=== PATIENT | female | born 1990 | race Caucasian/White ===

== ENCOUNTER 2019-01-09 11:24 | Emergency (ER) | payer OTHER ==
[~2019-01-09] VITALS: Ht 157.5 cm; Wt 85.7 kg
--- OUTSIDE RECORDS SUMMARY | 2019-01-09 11:26 | XMS REPORT | Encounter Summary ---
Author Organization Unknown Address [address] [place] [address] Phone [phone] Reason for Visit Medical Complaint Instructions 1. Sinusitis Augmentin 875 mg-125 mg tablet fluticasone 50 mcg/actuation nasal spray,suspension sinusitis: care instructions saline nasal washes: care instructions 2. Acute bronchitis bronchitis: care instructions Bromfed DM 2 mg-30 mg-10 mg/5 mL syrup 3. Sore throat symptom rapid strep group A, throat sore throat: care instructions 4. Cough rapid flu (A+B) cough: care instructions 5. Body mass index 30+ - obesity body mass index: care instructions learning about healthy weight 6. Elevated blood pressure elevated blood pressure: care instructions dash diet: care instructions blood pressure monitoring education Discussion Note: None recorded. Plan of Care Patient Instructions Your Care Instructions Sinusitis is an infection of the lining of the sinus cavities in your head. Sinusitis often follows a cold. It causes pain and pressure in your head and face. In most cases, sinusitis gets better on its own in 1 to 2 weeks. But some mild symptoms may last for several weeks. Sometimes antibiotics are needed. Follow-up care is a stephens part of your treatment and safety. Be sure to make and go to all appointments, and call your doctor if you are having problems. It's also a good idea to know your test results and keep a list of the medicines you take. How can you care for yourself at home? Take an ppba-qip-hnujjoy pain medicine, such as acetaminophen (Tylenol), ibuprofen (Advil, Motrin), or naproxen (Aleve). Read and follow all instructions on the label. If the doctor prescribed antibiotics, take them as directed. Do not stop taking them just because you feel better. You need to take the full course of antibiotics. Be careful when taking jfwn-wcr-qxyrulz cold or flu medicines and Tylenol at the same time. Many of these medicines have acetaminophen, which is Tylenol. Read the labels to make sure that you are not taking more than the recommended dose. Too much acetaminophen (Tylenol) can be harmful. Breathe warm, moist air from a steamy shower, a hot bath, or a sink filled with hot water. Avoid cold, dry air. Using a humidifier in your home may help. Follow the directions for cleaning the machine. Use saline (saltwater) nasal washes to help keep your nasal passages open and wash out mucus and bacteria. You can buy saline nose drops at a grocery store or drugstore. Or you can make your own at home by adding 1 teaspoon of salt and 1 teaspoon of baking soda to 2 cups of distilled water. If you make your own, fill a bulb syringe with the solution, insert the tip into your nostril, and squeeze gently. Blow your nose. Put a hot, wet towel or a warm gel pack on your face 3 or 4 times a day for 5 to 10 minutes each time. Try a decongestant nasal spray like oxymetazoline (Afrin). Do not use it for more than 3 days in a row. Using it for more than 3 days can make your congestion worse. When should you call for help? Call your doctor now or seek immediate medical care if: You have new or worse swelling or redness in your face or around your eyes. You have a new or higher fever. Watch closely for changes in your health, and be sure to contact your doctor if: You have new or worse facial pain. The mucus from your nose becomes thicker (like pus) or has new blood in it. You are not getting better as expected. Reminders Provider Appointments None recorded. Lab Rapid Strep Group a, Throat 09/04/2018 [facility] Rapid Flu (A+B) 09/04/2018 [facility] Referral None recorded. Procedures None recorded. Surgeries None recorded. Imaging None recorded. Medications Name Start Date Augmentin 875 mg-125 mg tablet Take 1 tablet every 12 hours by oral route with meals for 10 days. Bromfed DM 2 mg-30 mg-10 mg/5 mL syrup Take 10 mL every 4 hours by oral route. fluticasone 50 mcg/actuation nasal spray,suspension [place] 2 sprays every day by intranasal route as directed for 14 days. Gku-Cf-Vmfsbe 0.18 mg/0.215 mg/0.25 mg-25 mcg tablet TAKE ONE (1) TABLET(S) BY MOUTH ONCE A DAY. Medications Administered None recorded. Vitals Height Weight BMI Blood Pressure 5 ft 2 in 190 lbs 34.8 kg/m2 110/80 mm[Hg] Lab Results Date Name Specimen Result Interpretation Description Value Range Status Address Rapid Flu (A+B) Influenza a negative [facility]: [address] [place] [address] Influenza B negative [facility]: [address] [place] [address] Rapid Strep Group a, Throat Result negative [facility]: [facility] Swab Location Left and Right tonsillar pillars [facility]: [address] [place] [address] Allergies Code Code System Name Reaction Severity Status Onset NKDA Problems Name Status Onset Date Source Streptococcal Sore Throat Active Encounter Acute Sinusitis Active Encounter Acute Maxillary Sinusitis Active Encounter Procedures None recorded. Vaccine List Vaccine Type influenza, injectable, quadrivalent 07/09/2018 Social History Smoking Status Never Smoker Past Encounters 09/04/2018 Sinusitis; Acute Bronchitis; Sore Throat Symptom; Cough; Body Mass Index 30+ - Obesity; Elevated Blood Pressure RAJ LeavittC: [address] [place] [address], Ph. History of Present Illness Yegrurs-Wuctl-Xpv Reported By: Patient HPI: Quality: cannot identify. Duration: constant. Context: no tick/insect bites, no recent travel, no new medications, ill contacts. Associated Symptoms: no fever/chills, no muscle aches, no rash, no lethargy, headache, cold symptoms, tired (fatigue), cough, nasal passage blockage (stuffiness), nasal discharge. Modifying Factors OTC medication Review of Systems:ROS as noted in the HPI Review of Systems Basic Reported By: Patient Physical Exam Adult Basic, Adult Female Complete Reported By: Patient Constitutional: General Appearance: obese. Level of Distress: NAD. Ambulation: ambulating normally Psychiatric: Mental Status: active and alert. Orientation: to time, to place, to person Mya-Nztd-Dgfvg-Throat: Ears: no lesions on external ear, no outer ear tenderness, EACs clear, TMs clear. Hearing: no hearing loss. Nose: no lesions on external nose, nares patent, no septal deviation, nasal passages clear, sinus tenderness, nasal discharge. Lips, Teeth, and Gums: no mouth or lip ulcers, no bleeding gums, normal dentition. Oropharynx: moist mucous membranes, no erythema, no exudates, tonsils not enlarged Lungs: Respiratory effort: no dyspnea, no tachypnea, no use of accessory muscles, no intercostal retractions. Auscultation: breath sounds normal Cardiovascular: Heart Auscultation: RRR, no murmurs
--- OUTSIDE RECORDS SUMMARY | 2019-01-09 11:26 | XMS REPORT | Continuity of Care Document ---
Author Author [facility] Interface Address Unknown Phone Unavailable Problems Problem Status Onset Date Classification Date Reported Comments Source Asthma 09/29/2018 Diagnosis 09/29/2018 [facility] Allergic rhinitis 09/29/2018 Diagnosis 09/29/2018 [facility] Tonsillitis 09/29/2018 Diagnosis 09/29/2018 [facility] Elevated blood pressure 09/04/2018 Diagnosis 09/29/2018 [facility] Body mass index 30+ - obesity 09/04/2018 Diagnosis 09/29/2018 [facility] Acute bronchitis 09/04/2018 Diagnosis 09/29/2018 [facility] Sinusitis 09/04/2018 Diagnosis 09/29/2018 [facility] Cough 09/04/2018 Diagnosis 09/29/2018 [facility] Sore throat symptom 09/04/2018 Diagnosis 09/29/2018 [facility] Exposure to Streptococcus 09/30/2016 Diagnosis 09/30/2016 [facility] Streptococcal Sore Throat Problem 09/29/2018 [facility] Acute Sinusitis Problem 09/29/2018 [facility] Acute Maxillary Sinusitis Problem 09/29/2018 [facility] Medications Medication Details Route Status Patient Instructions Ordering Provider Order Date Source Amoxicillin 875 MG / Clavulanate 125 MG Oral Tablet [Augmentin] Augmentin 875 mg-125 mg tablet Take 1 tablet every 12 hours by oral route with meals for 10 days. Active [facility] Brompheniramine Maleate 0.4 MG/ML / Dextromethorphan Hydrobromide 2 MG/ML / Pseudoephedrine Hydrochloride 6 MG/ML Oral Solution [Bromfed DM] Bromfed DM 2 mg-30 mg-10 mg/5 mL syrup Take 10 mL every 4 hours by oral route. Active [facility] Fluticasone propionate 0.05 MG/ACTUAT Metered Dose Nasal [place] fluticasone 50 mcg/actuation nasal spray,suspension USE TWO (2) SPRAY(S) INTO EACH NOSTRIL EVERY DAY DIRECTED FOR 14 DAYS. Active [facility] Tky-Sb-Dutuby 0.18 mg/0.215 mg/0.25 mg-25 mcg tablet Vfz-Fv-Hggfst 0.18 mg/0.215 mg/0.25 mg-25 mcg tablet TAKE ONE (1) TABLET(S) BY MOUTH ONCE A DAY. Active [facility] Cathy-D Cathy-D Active [facility] Albuterol 0.09 MG/ACTUAT Metered Dose Inhaler ProAir HFA 90 mcg/actuation aerosol inhaler Take 1-2 puffs q 4-6 hr prn coughing or wheezing. Active [facility] Azithromycin 250 MG Oral Tablet Zithromax Z-Wilver 250 mg tablet TAKE 2 TABLETS (500 MG) BY ORAL ROUTE ONCE DAILY FOR 1 DAY THEN 1 TABLET (250 MG) BY ORAL ROUTE ONCE DAILY FOR 4 DAYS Active [facility] Amoxicillin 500 MG Oral Capsule amoxicillin 500 mg capsule Take 1 capsule every 12 hours by oral route for 10 days. Active [facility] Ortho Tri-Cyclen LO (28) 0.18 mg/0.215 mg/0.25 mg-25 mcg tablet Ortho Tri-Cyclen LO (28) 0.18 mg/0.215 mg/0.25 mg-25 mcg tablet TAKE ONE (1) TABLET(S) BY MOUTH ONCE A DAY. Active [facility] 200 ACTUAT Albuterol 0.09 MG/ACTUAT Metered Dose Inhaler [ProAir] ProAir HFA 90 mcg/actuation aerosol inhaler INHALE TWO (2) PUFF(S) FOUR TIMES A DAY NEEDED FOR SHORTNESS OF BREATH. Active [facility] Allergies, Adverse Reactions, Alerts Substance Category Reaction Severity Reaction type Status Date Reported Comments Source Immunizations Immunization Date Given Site Status Last Updated Comments Source influenza, injectable, quadrivalent 07/09/2018 completed [facility] Results Order Name Results Value Reference Range Date Interpretation Comments Source RESULT negative 09/29/2018 [facility] Influenza A negative 09/29/2018 [facility] Influenza B negative 09/29/2018 [facility] RESULT negative 09/29/2018 [facility] SWAB LOCATION Left and Right tonsillar pillars 09/29/2018 [facility] Influenza A negative 09/04/2018 [facility] Influenza B negative 09/04/2018 [facility] RESULT negative 09/04/2018 [facility] SWAB LOCATION Left and Right tonsillar pillars 09/04/2018 [facility] RESULT negative 09/30/2016 [facility] SWAB LOCATION Left and Right tonsillar pillars 09/30/2016 [facility] Vital Signs Vital Sign Value Date Comments Source Diastolic (mm Hg) 60 09/29/2018 [facility] Height 62 09/29/2018 [facility] Systolic (mm Hg) 115 09/29/2018 [facility] Weight 190 09/29/2018 [facility] Diastolic (mm Hg) 80 09/04/2018 [facility] Height 62 09/04/2018 [facility] Systolic (mm Hg) 110 09/04/2018 [facility] Weight 190 09/04/2018 [facility] Diastolic (mm Hg) 82 09/30/2016 [facility] Height 62 09/30/2016 [facility] Systolic (mm Hg) 120 09/30/2016 [facility] Weight 180 09/30/2016 [facility] Encounters Location Location Details Encounter Type Encounter Number Reason For Visit Attending Provider ADM Date DC Date Status Source [place] - [facility] - [id number] Aly Leija, TRA[employer]EL [employer]VIEWER-C: [address] [place] [address], Ph. [id number] Aly Leija 09/30/2016 [facility] [place] - [facility] - [id number] MANUEL Leavitt-C: [address] [place] [address], Ph. [id number] Fatou Polanco 09/04/2018 [facility] [place] - [facility] - [id number] CRUZ LeavittP-C: [address] [place] [address], Ph. [id number] Fatou Orisaradha 09/04/2018 [facility] [place] - [facility] - [id number] MANUEL Leavitt-C: [address] [place] [address], Ph. [id number] Biaethan Collin 09/04/2018 [facility] [place] - [facility] - [id number] January VAISHNAVI CarvajalC: [address] [place] [address], Ph. [phone] [id number] Zoey Wei 09/29/2018 [facility] Procedures Procedure Code Date Perfomer Comments Source
--- OUTSIDE RECORDS SUMMARY | 2019-01-09 11:26 | XMS REPORT | Encounter Summary ---
Author Organization Unknown Address [address] [place] [address] Phone [phone] Reason for Visit Medical Complaint Instructions 1. [...] care for yourself at home? Take an napb-ivx-qcibmvi pain medicine, such as acetaminophen (Tylenol), ibuprofen (Advil, Motrin), or naproxen (Aleve). Read and follow all instructions on the label. If the doctor prescribed antibiotics, take them as directed. Do not stop taking them just because you feel better. You need to take the full course of antibiotics. Be careful when taking fnei-nzi-ocgunzy cold or flu medicines and Tylenol at [...] oral route. fluticasone 50 mcg/actuation nasal spray,suspension [place] 2 sprays every day by intranasal route as directed for 14 days. Bnk-Wo-Rrdtlg 0.18 mg/0.215 mg/0.25 mg-25 mcg tablet TAKE ONE (1) TABLET(S) BY MOUTH ONCE A DAY. Medications Administered None recorded. Vitals Height Weight BMI Blood Pressure 5 ft 2 in 190 lbs 34.8 kg/m2 110/80 mm[Hg] Lab Results Date Name Specimen Result Interpretation Description Value Range Status Address Rapid Flu (A+B) Influenza a negative [facility]: [address] [place] [address] Influenza B negative [facility]: [address] [place] [address] Rapid Strep Group a, Throat Result negative [facility]: [facility] Swab Location Left and Right tonsillar pillars [facility]: [address] [place] [address] Allergies Code Code System Name Reaction Severity [...] Obesity; Elevated Blood Pressure RAJ LeavittC: [address] [place] [address], Ph. History of Present Illness Oruwxfr-Ifwrx-Qze Reported By: Patient HPI: Quality: cannot identify. [...] Orientation: to time, to place, to person Uup-Tmcx-Jhujk-Throat: Ears: no lesions on external ear, no [...]
--- OUTSIDE RECORDS SUMMARY | 2019-01-09 11:26 | XMS REPORT | Encounter Summary ---
Author Organization Unknown Address [address] [place] [address] Phone [phone] Reason for Visit Medical Complaint Instructions 1. Tonsillitis rapid strep group A, throat culture, respiratory mononucleosis, heterophile Ab, blood Zithromax Z-Wilver 250 mg tablet 2. Allergic rhinitis 3. Asthma ProAir HFA 90 mcg/actuation aerosol inhaler Discussion Note *Use nasal saline rinse(Jean Paul Med or Simply Saline): Use 2-3 times a day as needed for nasal congestion. *Drink plenty of fluids to stay hydrated. *Avoid known allergens. If you are not certain what is causing your allergies, [facility] offers allergy testing. *Drink plenty of fluids and get lots of rest. *May gargle with SCOPE OTC as needed. *May use acetaminophen (ex: Tylenol) or ibuprofen (ex: Motrin) as indicated on package for pain, bodyaches and/or fever. *May use Chloraseptic throat spray or mentholated throat lozenges for soothing. *Warm salt water gargles 3-4 times a day. (Mix cup warm water with Tsp of salt) *Take medication(s) as prescribed for the indicated length of time. *If no improvement in 3-5 days, or if new or worsening symptoms develop, follow up with a primary care physician. *Start using a new toothbrush after second day of antibiotics. *Use an additional form of control as antibiotics may decrease the effectiveness of control pills. Patient educational handouts: No information available. Plan of Care Reminders Provider Appointments None recorded. Lab Rapid Strep Group a, Throat 09/29/2018 [facility] Culture, Respiratory 09/29/2018 [facility] Mononucleosis, Heterophile Ab, Blood 09/29/2018 [facility] Referral None recorded. Procedures None recorded. Surgeries None recorded. Imaging None recorded. Medications Name Start Date Cathy-D fluticasone 50 mcg/actuation nasal spray,suspension USE TWO (2) SPRAY(S) INTO EACH NOSTRIL EVERY DAY DIRECTED FOR 14 DAYS. ProAir HFA 90 mcg/actuation aerosol inhaler Take 1-2 puffs q 4-6 hr prn coughing or wheezing. Zfn-El-[place] 0.18 mg/0.215 mg/0.25 mg-25 mcg tablet TAKE ONE (1) TABLET(S) BY MOUTH ONCE A DAY. Zithromax Z-Wilver 250 mg tablet TAKE 2 TABLETS (500 MG) BY ORAL ROUTE ONCE DAILY FOR 1 DAY THEN 1 TABLET (250 MG) BY ORAL ROUTE ONCE DAILY FOR 4 DAYS Medications Administered None recorded. Vitals Height Weight BMI Blood Pressure 5 ft 2 in 190 lbs 34.8 kg/m2 115/60 mm[Hg] Lab Results Date Name Specimen Result Interpretation Description Value Range Status Address Mononucleosis, Heterophile Ab, Blood Result negative [facility]: [address] [place] [address] Rapid Flu (A+B) Influenza a negative [facility]: [address] [place] [address] Influenza B negative [facility]: [address] [place] [address] Rapid Strep Group a, Throat Result negative [facility]: [address] [place] [address] Swab Location Left and Right tonsillar pillars [facility]: [address] [place] [address] Allergies Code Code System Name Reaction Severity Status Onset NKDA Problems Name Status Onset Date Source Streptococcal Sore Throat Active Encounter Acute Sinusitis Active Encounter Acute Maxillary Sinusitis Active Encounter Procedures None recorded. Vaccine List Vaccine Type influenza, injectable, quadrivalent 07/09/2018 Social History Smoking Status Never Smoker Past Encounters 09/29/2018 Tonsillitis; Allergic Rhinitis; Asthma January VAISHNAVI CarvajalC: [address] [place] [address], Ph. 09/04/2018 Sinusitis; Acute Bronchitis; Sore Throat Symptom; Cough; Body Mass Index 30+ - Obesity; Elevated Blood Pressure MIN Leavitt: [address] [place] [address], Ph. History of Present Illness Throat-Oral Complaint Reported By: Patient HPI: Location: throat. Quality: sore throat. Severity: ; varies in severity- when swallows - 7/10 in severity. Duration: 1 days. Onset/Timing: gradual. Context: no sick contacts, no foreign travel, non-smoker. Modifying factors: OTC medication. Associated Symptoms: no fever, no headache, no body aches, no sputum production, no shortness of breath, no wheezing, no change in number of pillows needed to sleep at night, no sweats, no significant weight gain, no significant weight loss, no morning cough, no vomiting, no diarrhea, no rash, no nausea, sore throat Note:Pt. is a 28 y.o. female here with headache, sore throat, runny nose, congestion x 1 day Review of Systems Basic Reported By: Patient Constitutional: Constitutional: no fever Eyes: Eyes: no eye complaints Dzpp-Xpdk-Ljdag-Throat: Ears: no ear complaints. Nose: nose/sinus problems. Mouth/Throat: no bleeding gums, no mouth complaints, no teeth problems, sore throat Cardiovascular: Cardiovascular: no chest pain, no shortness of breath, no known heart murmur Respiratory: Respiratory: no cough, no wheezing, no shortness of breath Gastrointestinal: Gastrointestinal: no abdominal pain, no vomiting / diarrhea Skin: Skin: no abnormal / changing mole, no jaundice, no rashes Physical Exam Adult Basic, Adult Female Complete Reported By: Patient Constitutional: General Appearance: healthy-appearing, well-nourished, well-developed. Level of Distress: NAD. Ambulation: ambulating normally Psychiatric: Mental Status: active and alert. Orientation: to time, to place, to person Eyes: Lids and Conjunctivae: non-injected, no discharge, no pallor. Pupils: PERRLA. Corneas: grossly intact. EOM: EOMI. Lens: clear. Sclerae: non-icteric Mgz-Nfum-Xkxru-Throat: Ears: no lesions on external ear, no outer ear tenderness, EACs clear, TMs clear. Hearing: no hearing loss. Nose: no lesions on external nose, nares patent, no septal deviation, nasal passages clear, no sinus tenderness, no nasal discharge; turbinates- pink bilaterally. Lips, Teeth, and Gums: no mouth or lip ulcers, no bleeding gums, normal dentition. Oropharynx: moist mucous membranes, erythema, exudates, tonsils enlarged + Neck: Neck: supple, trachea midline, no masses, FROM. Lymph Nodes: no supraclavicular LAD, anterior cervical LAD Lungs: Respiratory effort: no dyspnea, no tachypnea, no use of accessory muscles, no intercostal retractions. Auscultation: breath sounds normal Cardiovascular: Heart Auscultation: RRR, no murmurs Skin: Inspection and palpation: no rash, no lesions, no ulcer, no abnormal nevi, no induration, no nodules, good turgor, no jaundice. Nails: normal Abdomen: Bowel Sounds: normal. Inspection and Palpation: soft, non-distended, no tenderness, no guarding, no rebound tenderness, no masses, no CVA tenderness. Liver: non-tender, no hepatomegaly. Spleen: non-tender, no splenomegaly. Hernia: none palpable
--- OUTSIDE RECORDS SUMMARY | 2019-01-09 11:26 | XMS REPORT | Encounter Summary ---
Author Organization Unknown Address [address] [place] [address] Phone [phone] Reason for Visit Medical Complaint Instructions 1. Exposure to Streptococcus amoxicillin 500 mg capsule rapid strep group A, throat Discussion Note: None recorded. Patient educational handouts: No information available. Plan of Care Patient Instructions take rx as directed. otc tylenol or ibuprofen prn. change toothbrush after 3 days. do not share or eat after one another. follow up pcp Reminders Provider Appointments None recorded. Lab Rapid Strep Group a, Throat 09/30/2016 [facility] Referral None recorded. Procedures None recorded. Surgeries None recorded. Imaging None recorded. Medications Name Start Date amoxicillin 500 mg capsule Take 1 capsule every 12 hours by oral route for 10 days. azithromycin 250 mg tablet TAKE 2 TABLETS BY MOUTH ON DAY 1, THEN 1 TABLET DAILY ON DAYS 2 TO 5. Ortho Tri-Cyclen LO (28) 0.18 mg/0.215 mg/0.25 mg-25 mcg tablet TAKE ONE (1) TABLET(S) BY MOUTH ONCE A DAY. ProAir HFA 90 mcg/actuation aerosol inhaler INHALE TWO (2) PUFF(S) FOUR TIMES A DAY NEEDED FOR SHORTNESS OF BREATH. Medications Administered None recorded. Vitals Height Weight BMI Blood Pressure 5 ft 2 in 180 lbs 32.9 120/82 Lab Results Date Name Result Description Value Range Status Rapid Strep Group a, Throat Result negative Swab Location Left and Right tonsillar pillars Allergies Name Reaction Severity Onset NKDA Problems Name Status Onset Date Source Streptococcal Sore Throat Active Encounter Acute Sinusitis Active Encounter Acute Maxillary Sinusitis Active Encounter Procedures None recorded. Vaccine List None recorded. Social History Smoking Status Never Smoker Past Encounters 09/30/2016 Exposure to Streptococcus MANUEL Ramey-C: [address] [place] [address], Ph. History of Present Illness Nxfcm-Xwqbjxlkzb-Vxsfzog Reported By: Patient HPI: Location: head/sinuses, throat. Quality: sore throat, nasal/sinus congestion. Duration: 2days. Severity: mild, moderate. Onset/Timing: gradual. Context: no sick contacts, no foreign travel, non-smoker. Associated Symptoms: no sputum production, no shortness of breath, no wheezing, no change in number of pillows needed to sleep at night, no sweats, no significant weight gain, no significant weight loss, no morning cough, no sore throat, no vomiting, no diarrhea, no rash, no nausea, no fever, no muscle aches, no headache Review of Systems:ROS as noted in the HPI Review of Systems Basic Reported By: Patient Physical Exam Adult Basic, Adult Female Complete Reported By: Patient Constitutional: General Appearance: healthy-appearing, well-nourished, well-developed. Level of Distress: NAD. Ambulation: ambulating normally Psychiatric: Mental Status: active and alert Eyes: Lids and Conjunctivae: non-injected, no discharge Bhi-Xyoq-Xttqb-Throat: Ears: no lesions on external ear, no outer ear tenderness, EACs clear, TMs clear. Hearing: no hearing loss. Nose: no lesions on external nose, nares patent, sinus tenderness. Lips, Teeth, and Gums: no mouth or lip ulcers. Oropharynx: moist mucous membranes, no erythema, no exudates, tonsils not enlarged Neck: Neck: trachea midline. Lymph Nodes: no cervical LAD Lungs: Respiratory effort: no dyspnea, no tachypnea, no use of accessory muscles, no intercostal retractions. Auscultation: breath sounds normal Cardiovascular: Heart Auscultation: RRR, no murmurs
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
== END 2019-01-09 12:58 | disposition home or self-care (01) ==
LOC: FSED 11:24
DX: M54.5 Low back pain (principal); S33.5XXA Sprain of ligaments of lumbar spine, initial encounter; V43.52XA Car driver injured in collision with other type car in traffic accident, initial encounter; Y92.488 Other paved roadways as the place of occurrence of the external cause
CPT/HCPCS: 72100; 81025; 99283